=== PATIENT | male | born 1990 | race Caucasian/White ===

== ENCOUNTER 2017-11-27 12:30 | Emergency (ER) | payer MEDICAID, OTHER | END 2017-11-27 13:03 | disposition home or self-care (01) | LOC: E/R 12:30 | DX: J06.9 Acute upper respiratory infection, unspecified (principal); J01.00 Acute maxillary sinusitis, unspecified; F17.210 Nicotine dependence, cigarettes, uncomplicated | CPT/HCPCS: 99283; Z7502 ==

== ENCOUNTER 2017-12-17 19:41 | Emergency (ER) | payer MEDICAID ==
[2017-12-17] MEDS: IBUPROFEN 600 MG TAB PO (22:04)
== END 2017-12-17 23:35 | disposition home or self-care (01) ==
LOC: FTE 19:41
DX: S69.91XA Unspecified injury of right wrist, hand and finger(s), initial encounter (principal); F17.210 Nicotine dependence, cigarettes, uncomplicated; V89.2XXA Person injured in unspecified motor-vehicle accident, traffic, initial encounter
CPT/HCPCS: 73140; 99283-25

== ENCOUNTER 2018-02-06 23:28 | Emergency (ER) | payer SELFPAY, MEDICAID | END 2018-02-07 04:00 | disposition left against medical advice (07) | LOC: FTE 23:28 | DX: Z53.21 Procedure and treatment not carried out due to patient leaving prior to being seen by health care provider (principal) ==